=== PATIENT | female | born 1985 | race African-American/Black ===

== ENCOUNTER → 2021-06-24 15:45 | Outpatient (CLI) | payer OTHER, MEDICAID, SELFPAY ==
--- NOTE | 2021-06-24 | DI.US.S_ITS ---
PROCEDURE: US OB >= 14 WEEKS FETUS INDICATIONS: 20 WEEK ANATOMICAL SURVEY. OUTSIDE/PRIOR DATING DATA: Last menstrual period (LMP): January 11, 2021. LMP-based estimated date of delivery (DANIEL): October 18, 2021. First dating scan (date and location): June 24, 2021. Estimated date of delivery (DANIEL) from first dating scan: October 19, 2021. TECHNIQUE: Real-time scanning was performed of the fetus, with image documentation and biometric measurements. Endovaginal scanning: Yes COMPARISON: None. FINDINGS: General: A single living intrauterine gestation is present. Presentation: Vertex Placenta: Placental position is anterior, without previa. Amniotic fluid index: 14.0 cm, normal range is 5-24 cm. heart rate: 153 beats per minute. Maternal cervical canal: Closed and 4.6 cm long. Normal lower limit is 2.5 cm. biometrics: Biparietal diameter: 22 weeks 4 days Head circumference: 22 weeks 6 days Abdominal circumference: 22 weeks 6 days Femur length: 24 weeks 4 days Estimated gestational age from initial scan: not applicable. Composite gestational age from present scan: 23 weeks 2 days Estimated weight and percentile: 600 grams; 45th percentile Measurement variability for biometric dating: +/- 7 days from 14 weeks to 15 weeks 6 days gestation, +/- 10 days from 16 weeks to 21 weeks 6 days gestation, +/- 2 weeks from 22 weeks to 27 weeks 6 days gestation, +/- 3 weeks for 28 weeks gestation or later. weight reference: 4500 g or EFW >90/95% is considered macrosomia or large for gestational age. EFW <10% is small for gestational age. EFW 5% or less is considered intra-uterine growth restriction. Anatomic survey: Neuro: Ventricles are non-dilated at less than 10 mm. Cisterna magna is normal at 3-11 mm. Cerebellum is normal in size and morphology. Nuchal skin fold: Normal at less than 6 mm between 14-21 weeks gestational age. Face: Limited evaluation demonstrates no gross abnormality. Spine: Normal. Heart: Not well seen Diaphragm: Not well seen Stomach: Left-sided stomach is present. Kidneys: No hydronephrosis. Normal is less than 5 mm in 2nd trimester, less than 7 mm in 3rd trimester. Cord: 3-vessel cord has orthotopic insertion. Bladder: Normal in size. Extremities: All 4 extremities identified. IMPRESSION: 1. Single living intrauterine with ultrasound estimated gestational age of 23 weeks 2 days corresponding to ultrasound DANIEL of 10/19/2021. 2. anatomic survey limited secondary to advanced gestational age and maternal body habitus. 3. face, heart including outflow tracts and chest are poorly visualized and cannot be evaluated. 4. Otherwise, normal anatomic survey. Dictated by: Em Conrad MD, PhD on 06/25/2021 at 8:48 Approved by: Em Conrad MD, PhD on 06/25/2021 at 8:53
== END ==
PROVIDERS: Referring Provider Family Medicine; Visit Provider Family Medicine
DX: Z36.89 Encounter for other specified antenatal screening (principal); Z3A.23 23 weeks gestation of pregnancy
CPT/HCPCS: 76811